=== PATIENT | female | born 2000 | race African-American/Black ===

== ENCOUNTER → 2022-12-31 | Outpatient (REF) | payer SELFPAY | LOC: M LAB REF 17:37 | PROVIDERS: ATTEND Internal Medicine Endocrinology, Diabetes & Metabolism | DX: E04.2 Nontoxic multinodular goiter (principal) ==

== ENCOUNTER 2023-09-23 07:06 | Emergency (ER) | payer OTHER ==
[~2023-09-23] VITALS: Ht 157.5 cm; Wt 70.6 kg
[2023-09-23] MEDS ORDERED: ACETAMINOPHEN *IV* 1,000 MG in IV 1 EA IV ONE (08:00)
[2023-09-23] MEDS ORDERED: ONDANSETRON 4MG 2ML VIAL IV ONE (08:00)
[2023-09-23] MEDS ORDERED: NS 1,000 ML IV ONE (08:00)
[2023-09-23 08:27] LABS: BASO # 0.1 10^3/uL (0.0-0.2); BASO % 0.7 % (0.0-1.0); EOS # 0.4 10^3/uL (0.0-0.5); EOS % 4.7 % (0.0-3.0); HEMATOCRIT 42.6 % (36.0-47.0); HEMOGLOBIN 13.3 g/dl (12.0-15.5); LYMPH # 2.1 10^3/uL (1.5-5.0); LYMPH % 27.5 % (24.0-44.0); MEAN CORPUSCULAR HEMOGLOBIN 26.4 pg (27.0-33.0); MEAN CORPUSCULAR HGB CONC 31.2 g/dl (32.0-36.5); MEAN CORPUSCULAR VOLUME 84.5 fl (80.0-96.0); MONO # 0.4 10^3/uL (0.0-0.8); MONO % 4.7 % (2.0-8.0); NEUTROPHILS # 4.7 10^3/uL (1.5-8.5); NEUTROPHILS % 62.1 % (36.0-66.0); PLATELET COUNT, AUTOMATED 266 10^3/uL (150-450); RED BLOOD COUNT 5.04 10^6/uL (4.00-5.40); WHITE BLOOD COUNT 7.5 10^3/uL (4.0-10.0)
[2023-09-23 08:57] LABS: ALBUMIN 3.6 G/DL (3.2-5.2); ALKALINE PHOSPHATASE 63 U/L (46-116); ALT/SGPT 21 U/L (7.0-40); AST/SGOT 15 U/L (<34); BILIRUBIN,DIRECT < 0.1 MG/DL (<0.4); BILIRUBIN,TOTAL 0.2 MG/DL (0.3-1.2); TOTAL PROTEIN 6.6 G/DL (5.7-8.2)
[2023-09-23] MEDS ORDERED: ISOVUE-370 76% 100ML VIAL As Ordered ONE (10:04)
[2023-09-23] MEDS ORDERED: ONDA4TAB6 PO (12:57)
[2023-09-23 13:25] VITALS: BP 129/60; TEMP 96.7; O2SAT 98
== END 2023-09-23 13:27 | disposition home or self-care (01) ==
LOC: M ED 07:06
DX: N83.202 Unspecified ovarian cyst, left side (principal); E04.9 Nontoxic goiter, unspecified; Z79.83 Long term (current) use of bisphosphonates
CPT/HCPCS: 71250; 74177; 76856; 80047; 80076; 81001; 84702; 85025; 93976; 96361; 96374; 96375; 99284; J0131; J2405; Q9967

== ENCOUNTER 2023-11-13 20:10 | Emergency (ER) | payer OTHER ==
[~2023-11-13] VITALS: Ht 157.5 cm; Wt 69.6 kg
[~2023-11-13 20:10] MED LIST: ONDA4TAB6 PO
[2023-11-13] MEDS ORDERED: TOPI25CA5 PO (21:31)
[2023-11-13] MEDS: IBUPROFEN 600MG TAB PO ONE (21:52)
[2023-11-13 21:59] VITALS: BP 134/74; TEMP 98.2; O2SAT 99
== END 2023-11-13 22:01 | disposition home or self-care (01) ==
LOC: M ED 20:10
DX: S60.021A Contusion of right index finger without damage to nail, initial encounter (principal); S60.031A Contusion of right middle finger without damage to nail, initial encounter; X50.0XXA Overexertion from strenuous movement or load, initial encounter; Y92.512 Supermarket, store or market as the place of occurrence of the external cause; Y93.89 Activity, other specified; Y99.9 Unspecified external cause status; Z79.899 Other long term (current) drug therapy

== ENCOUNTER 2024-01-01 16:15 | Emergency (ER) | payer OTHER ==
[~2024-01-01] VITALS: Ht 157.5 cm; Wt 68.2 kg
[~2024-01-01 16:15] MED LIST changes: +TOPI25CA5 PO
[2024-01-01 16:51] LABS: BASO % 0.4 % (0.0-1.0); EOS # 0.2 10^3/uL (0.0-0.5); EOS % 2.6 % (0.0-3.0); HEMATOCRIT 38.9 % (36.0-47.0); HEMOGLOBIN 12.3 g/dl (12.0-15.5); LYMPH # 3.3 10^3/uL (1.5-5.0); LYMPH % 36.5 % (24.0-44.0); MEAN CORPUSCULAR HEMOGLOBIN 27.2 pg (27.0-33.0); MEAN CORPUSCULAR HGB CONC 31.6 g/dl (32.0-36.5); MEAN CORPUSCULAR VOLUME 85.9 fl (80.0-96.0); MONO # 0.6 10^3/uL (0.0-0.8); MONO % 6.4 % (2.0-8.0); NEUTROPHILS # 4.9 10^3/uL (1.5-8.5); NEUTROPHILS % 53.8 % (36.0-66.0); PLATELET COUNT, AUTOMATED 279 10^3/uL (150-450); RED BLOOD COUNT 4.53 10^6/uL (4.00-5.40); WHITE BLOOD COUNT 9.1 10^3/uL (4.0-10.0)
[2024-01-01 17:13] LABS: HCG, SERUM QUANTITATIVE 13.5 MIU/ML (<4.2)
[2024-01-01 17:15] LABS: BLOOD UREA NITROGEN 14 MG/DL (9-23); CALCIUM LEVEL 8.8 MG/DL (8.5-10.1); CARBON DIOXIDE LEVEL 29 MMOL/L (20-31); CHLORIDE LEVEL 108 MMOL/L (98-107); CREATININE FOR GFR 0.99 MG/DL (0.55-1.30); GLOMERULAR FILTRATION RATE > 60.0 (>60); GLUCOSE, FASTING 91 MG/DL (60-100); POTASSIUM SERUM 3.7 MMOL/L (3.5-5.1); SODIUM LEVEL 142 MMOL/L (136-145)
[2024-01-01 20:54] VITALS: BP 120/65; TEMP 97.8; O2SAT 100
== END 2024-01-01 20:55 | disposition home or self-care (01) ==
LOC: EDBD 16:15 → M ED 16:15
DX: O20.0 Threatened abortion (principal); E05.90 Thyrotoxicosis, unspecified without thyrotoxic crisis or storm; Z79.899 Other long term (current) drug therapy

== ENCOUNTER 2024-01-20 07:24 | Emergency (ER) | payer OTHER ==
[~2024-01-20] VITALS: Ht 157.5 cm; Wt 70.4 kg
[2024-01-20 07:25] VITALS: TEMP 98.5
[2024-01-20 08:10] LABS: BASO % 0.4 % (0.0-1.0); EOS # 0.2 10^3/uL (0.0-0.5); EOS % 2.3 % (0.0-3.0); HEMATOCRIT 40.9 % (36.0-47.0); HEMOGLOBIN 12.9 g/dl (12.0-15.5); LYMPH # 2.2 10^3/uL (1.5-5.0); LYMPH % 30.1 % (24.0-44.0); MEAN CORPUSCULAR HGB CONC 31.5 g/dl (32.0-36.5); MEAN CORPUSCULAR VOLUME 85.6 fl (80.0-96.0); MONO # 0.5 10^3/uL (0.0-0.8); MONO % 6.1 % (2.0-8.0); NEUTROPHILS # 4.5 10^3/uL (1.5-8.5); PLATELET COUNT, AUTOMATED 272 10^3/uL (150-450); RED BLOOD COUNT 4.78 10^6/uL (4.00-5.40); WHITE BLOOD COUNT 7.4 10^3/uL (4.0-10.0)
[2024-01-20 08:35] LABS: BLOOD UREA NITROGEN 14 MG/DL (9-23); CALCIUM LEVEL 9.3 MG/DL (8.5-10.1); CARBON DIOXIDE LEVEL 26 MMOL/L (20-31); CHLORIDE LEVEL 108 MMOL/L (98-107); CREATININE FOR GFR 1.03 MG/DL (0.55-1.30); GLOMERULAR FILTRATION RATE > 60.0 (>60); GLUCOSE, FASTING 75 MG/DL (60-100); HCG, SERUM QUANTITATIVE < 2.6 MIU/ML (<4.2); POTASSIUM SERUM 4.5 MMOL/L (3.5-5.1); SODIUM LEVEL 138 MMOL/L (136-145)
[2024-01-20 08:36] LABS: THYROID STIMULATING HORMONE 0.068 uIU/ML (0.55-4.78)
[2024-01-20 08:38] LABS: FREE T4 1.15 NG/DL (0.89-1.76)
[2024-01-20] MEDS ORDERED: HOME MED LIST COMPLETE! XX SCH (10:15)
[2024-01-20 13:14] VITALS: BP 113/68; O2SAT 100
== END 2024-01-20 13:15 | disposition home or self-care (01) ==
LOC: M ED 07:24
DX: E04.9 Nontoxic goiter, unspecified (principal); E05.90 Thyrotoxicosis, unspecified without thyrotoxic crisis or storm; Z79.899 Other long term (current) drug therapy

== ENCOUNTER → 2024-06-15 | Outpatient (REF) | payer OTHER ==
[~2024-06-15] MED LIST changes: +ONDA-282 PO; -ONDA4TAB6 PO
== END ==
LOC: M LAB REF 15:11
PROVIDERS: ATTEND Internal Medicine Endocrinology, Diabetes & Metabolism
DX: E04.2 Nontoxic multinodular goiter (principal)